=== PATIENT | male | born 2000 | race African-American/Black ===

== ENCOUNTER 2020-10-06 19:01 | Emergency (ER) | payer MEDICAID ==
[~2020-10-06] VITALS: Ht 180.3 cm; Wt 85.3 kg
[2020-10-06 19:41] LABS: CLARITY,URINE CLEAR (Clear); COLOR,URINE YELLOW (Yellow); GLUCOSE, URINE NEGATIVE (Neg); KETONES,URINE NEGATIVE (Neg); LEUKOCYTE ESTERASE ,URINE TRACE (Neg); NITRITES, URINE NEGATIVE (Neg); OCCULT BLOOD,URINE NEGATIVE (Neg); PH,URINE 5.5 (4.8-8.0); PROTEIN,URINE NEGATIVE (Neg); UROBILINOGEN,URINE 0.2 E.U/dL (0.2-1.0)
[2020-10-06 19:45] LABS: BASOPHILS % (AUTO) 0.5 % (0-1); HEMOGLOBIN 13.7 g/dl (14.0-17.9); MEAN CORPUSCULAR HEMOGLOBIN 24.7 PG (27.0-31.0); MONOCYTES # (AUTO) 0.4 X10'3 (0-0.9); NEUTROPHILS # (AUTO) 2.4 X10'3 (1.8-7.7); NEUTROPHILS % (AUTO) 55.6 % (42-75); RED BLOOD COUNT 5.55 X10'6 (4.70-6.10); RED CELL DISTRIBUTION WIDTH 13.5 % (11.5-14.5)
[2020-10-06 19:47] LABS: EOSINOPHILS % (AUTO) 0.9 % (0-6); HEMATOCRIT 43.5 % (42.0-52.0); LYMPHOCYTES # (AUTO) 1.4 X10'3 (1.1-4.8); LYMPHOCYTES % (AUTO) 32.8 % (21-51); MEAN CORPUSCULAR HGB CONC 31.6 g/dL (33.0-36.5); MEAN CORPUSCULAR VOLUME 78.3 FL (78-98); MEAN PLATELET VOLUME 8.1 FL (7.4-10.4); MONOCYTES % (AUTO) 10.2 % (2-12); PLATELET COUNT 239 X10'3 (140-440); WHITE BLOOD COUNT 4.3 X10'3 (4.5-11.0)
[2020-10-06 19:57] LABS: UA COLLECTION TYPE CLN CATCH MIDSTREAM
[2020-10-06 19:58] LABS: BACTERIA,URINE NONE SEEN /HPF (Neg); RBC,URINE NONE SEEN /HPF (0-2); SQUAMOUS EPITHELIAL CELL,UR FEW /LPF (FEW); WBC,URINE 0-4 /HPF (0-4)
[2020-10-06 20:10] LABS: ALANINE AMINOTRANSFERASE 20 U/L (12-78); ALBUMIN 3.9 G/DL (3.4-5.0); ALBUMIN/GLOBULIN RATIO 1.1 (1.1-1.5); ALKALINE PHOSPHATASE 55 IU/L (46-116); ANION GAP 8 (8-16); ASPARTATE AMINO TRANSFERASE 14 U/L (10-37); BILIRUBIN,TOTAL 0.9 MG/DL (0.1-1.0); BLOOD UREA NITROGEN 7 MG/DL (7-18); BUN/CREATININE RATIO 8.6 (5.4-32.0); CALCIUM 9.3 MG/DL (8.5-10.1); CHLORIDE 105 MMOL/L (99-107); CREATININE 0.81 MG/DL (0.60-1.10); GLUCOSE 84 MG/DL (70-104); LIPASE < 50 U/L (73-393); POTASSIUM 3.8 MMOL/L (3.5-5.1); SODIUM 140 MMOL/L (135-145); TOTAL CARBON DIOXIDE 26.7 MMOL/L (24-32); TOTAL PROTEIN 7.4 G/DL (6.4-8.2); eGFR > 90 ML/MIN
[2020-10-06] MEDS ORDERED: ondansetron/PF 4mg/2ml inj IV ONE ×2 (20:20→20:25)
[2020-10-06] MEDS ORDERED: normal saline 1000ML IV soln IVB ONE ×2 (20:20→20:25)
--- NOTE | 2020-10-06 21:11 | NUR ---
Pt states his nausea feels better. SBP 120
[2020-10-06] MEDS ORDERED: ONDA4TAB12 PO (21:22)
[2020-10-06 21:37] VITALS: BP 129/80
== END 2020-10-06 21:38 | disposition home or self-care (01) ==
LOC: ER 19:02
DX: E86.0 Dehydration (principal); R11.2 Nausea with vomiting, unspecified; R19.7 Diarrhea, unspecified; R10.9 Unspecified abdominal pain; F12.90 Cannabis use, unspecified, uncomplicated; Z98.890 Other specified postprocedural states; Z79.899 Other long term (current) drug therapy
CPT/HCPCS: 36415; 80053; 81001; 83690; 85025; 87088; 96361; 96374; 99283; J2405; J7030

== ENCOUNTER 2023-04-09 06:49 | Emergency (ER) | payer MEDICAID ==
[~2023-04-09] VITALS: Ht 175.3 cm; Wt 74.9 kg
[~2023-04-09 06:49] MED LIST: ONDA4TAB12 PO
[2023-04-09 06:53] VITALS: TEMP 98.6
--- NOTE | 2023-04-09 07:23 | NUR ---
MSE COMPLETED BY DR JONES
[2023-04-09] MEDS ORDERED: DOXY-356 PO (08:19)
[2023-04-09] MEDS ORDERED: DOXY100C77 PO (08:19)
[2023-04-09] MEDS ORDERED: IBUP-1984 PO (08:19)
[2023-04-09 08:28] VITALS: BP 126/69; PULSE 55; RESP 18; O2SAT 99
--- NOTE | 2023-04-09 13:30 | NUR ---
I AGREE WITH THE ASSESSMENT PER Ramya CAM LVN
== END 2023-04-09 13:30 | disposition home or self-care (01) ==
LOC: ER 06:50
DX: L03.012 Cellulitis of left finger (principal); F12.90 Cannabis use, unspecified, uncomplicated; Z79.2 Long term (current) use of antibiotics; Z79.899 Other long term (current) drug therapy
CPT/HCPCS: 99283

== ENCOUNTER 2024-10-06 17:42 | Emergency (ER) | payer MEDICAID, OTHER ==
[~2024-10-06] VITALS: Ht 175.3 cm; Wt 85.1 kg
[~2024-10-06 17:42] MED LIST changes: +ONDA-243 PO; -ONDA4TAB12 PO
[2024-10-06 17:44] VITALS: BP 156/95; PULSE 69; RESP 16; O2SAT 98
--- NOTE | 2024-10-06 17:54 | Physician Documentation ---
History of Present Illness ~ General Chief Complaint: See Chief Complaint Stated Complaint: DRUG SCREENING Time Seen by MD: 17:54 History of Present Illness Initial Comments This is a 24 yr old male brought to the ER by his employee for a drug test. Patient himself denies any concerns and is agreeable. Medication Reconciliation Allergies: Coded Allergies: No Known Allergies (Unverified , 04/09/23) Scheduled PRN ONDANSETRON ODT 4mg tablet (Ondansetron Odt), 1 TABLET PO Q6H PRN for nausea/vomiting Past Medical History Past Medical History: No Pertinent History Past Surgical History: abdominal surgery Drug Use: marijuana Lives with: Family Lives In: Home Occupation: employed Review of Systems ROS As stated above in the HPI, otherwise all systems are reviewed and negative. Constitutional: Denies: chills, fever, weakness Eyes: Denies: pain, blurred vision ENT: Denies: ear pain, nose pain, throat pain, mouth pain Respiratory: Denies: cough, shortness of breath Cardiovascular: Denies: chest pain, palpitations Gastrointestinal: Denies: abdominal pain, nausea, vomiting Genitourinary: Denies: burning, dysuria Male Genitalia: Denies: penile discharge, testicular pain Neurological: Denies: headache, dizziness Musculoskeletal: Denies: pain, swelling Integumentary: Denies: rash, lesions Allergic/Immunologic: Denies: hives, itching Hematologic/Lymphatic: Denies: no symptoms reported Psychiatric: Denies: depression, anxiety Physical Exam Physical Exam Vital Signs: Temperature: 98.0, Source: Temporal, Heart Rate: 69, Respiratory Rate: 16, BP: 156/95, Pulse Oximetry: 98, Weight: 85.100 Oxygen Flow Rate: 0 Physical Exam General: Alert, no apparent distress. Neck: Full range of motion. Respiratory: Lungs clear, no respiratory distress. Chest: No accessory muscle use. Cardiovascular: Regular rate and rhythm, no murmurs. Gastrointestinal: Soft, nontender, nondistended. Bowels sounds present. Extremities: Normal range of motion, no deformity. Neurologic: Oriented x4. Psychiatric: Normal mood and affect. Skin: Normal color, warm and dry. No edema, no ecchymosis. Progress Results/Orders Results/Orders Vital Signs 10/06/24 17:44 Temp 98.0 Pulse 69 Resp 16 B/P (MAP) 156/95 Pulse Ox 98 O2 Flow Rate 0 Laboratory Tests Test 10/06/24 17:50 Urine Opiates Screen Negative Urine Methadone Screen Negative Urine Fentanyl Screen Negative Urine Barbiturates Screen Negative Urine Phencyclidine Screen Negative Urine Amphetamines Screen Negative Urine Benzodiazepines Screen Negative Urine Cocaine Screen Negative Urine Cannabinoids Screen Positive Drug Screen Comment Medical Decision Making Findings This is a 24 yr old male brought to the ER by his employee for a drug test. Patient himself denies any concerns and is agreeable. Urine drug screen was completed today and came back negative for all illicits and was positive only for cannabis. Differential Diagnosis Well appearing, agreeable to urine drug screen as requested by his employer. Departure Disposition: HOME / SELF CARE / HOMELESS Impression: Primary Impression: Employment-related drug testing, encounter for Discharge Instructions: Medical Screening Exam Additional Instructions: Urine drug screen was completed today and came back negative for all illicits and was positive only for cannabis. Referrals: NO PRIMARY CARE PROVIDER (PCP) Education Educated: Patient Educated regarding: diagnosis, treatment, prognosis, need for follow up Signature Scribe Signature: no scribe Attestation: The note accurately reflects work and decisions made by me.Dave Duqeu NP 10/06/24 18:10 This note accurately reflects the work and decisions made by me Pelon OCHOA 10/06/2024. DAVE VALDEZ NP October 06, 2024 17:54 PELON LINK October 06, 2024 19:02
[2024-10-06 18:38] LABS: URINE AMPHETAMINE SCREEN NEGATIVE (Neg); URINE BARBITUATE SCREEN NEGATIVE (Neg); URINE BENZODIAZEPINES SCREEN NEGATIVE (Neg); URINE CANNABINOID SCREEN POSITIVE (Neg); URINE COCAINE SCREEN NEGATIVE (Neg); URINE METHADONE SCREEN NEGATIVE (Neg); URINE OPIATE SCREEN NEGATIVE (Neg); URINE PHENCYCLIDINE SCREEN NEGATIVE (Neg)
[2024-10-06 19:01] VITALS: TEMP 98
== END 2024-10-06 19:05 | disposition home or self-care (01) ==
LOC: ER 17:42
DX: Z02.89 Encounter for other administrative examinations (principal)
CPT/HCPCS: 80305; 99283